=== PATIENT | male | born 1985 | race African-American/Black ===

== ENCOUNTER 2020-03-31 21:33 | Emergency (ER) | payer SELFPAY ==
--- NOTE | 2020-03-31 22:38 | ER Document Report ---
ED Medical Screen (RME) - General Chief Complaint: Testicular Swelling Stated Complaint: SWOLLEN TESTICLE Time Seen by Provider: 03/31/20 22:32 Primary Care Provider: JERONIMO ALEMAN MD [Primary Care Provider] - Follow up as needed Notes: HPI: 34-year-old male presenting for evaluation of right testicular pain and swelling. Patient states over the last 2 to 3 days he noticed increasing pain and swelling of the right testicle had fever up to 101 last night. Reports urine is dark and foul-smelling. States initially he did have some discomfort in the lower abdomen that is now mostly in the right testicle. PHYSICAL EXAMINATION: Patient's right testicle is significantly swollen with moderate tenderness along the testicle itself in the epididymis left testicle is not tender not swollen or edematous I have greeted and performed a rapid initial assessment of this patient. A comprehensive ED assessment and evaluation of the patient, analysis of test results and completion of medical decision making process will be conducted by an additional ED providers. TRAVEL OUTSIDE OF THE [place] IN LAST 30 DAYS: No - Related Data Allergies/Adverse Reactions: No Known Allergies Allergy (Unverified 03/31/20 22:32) Physical Exam - Vital signs Vitals: Temp Pulse Resp BP Pulse Ox 98.6 F 109 H 18 153/90 H 99 03/31/20 21:51 03/31/20 21:51 03/31/20 21:51 03/31/20 21:51 03/31/20 21:51 Course - Vital Signs Vital signs: Temp Pulse Resp BP Pulse Ox 98.6 F 109 H 18 153/90 H 99 03/31/20 21:51 03/31/20 21:51 03/31/20 21:51 03/31/20 21:51 03/31/20 21:51 Doctor's Discharge - Discharge Referrals: JERONIMO ALEMAN MD [Primary Care Provider] - Follow up as needed
[2020-03-31 22:50] LABS: ABSOLUTE LYMPHOCYTES (AUTO) 1.2 10^3/uL (0.5-4.7); ABSOLUTE MONOCYTES (AUTO) 0.9 10^3/uL (0.1-1.4); ABSOLUTE NEUT (AUTO) 8.2 10^3/uL (1.7-8.2); BASOPHILS % (AUTO) 0.2 % (0-2); EOSINOPHILS % (AUTO) 0.5 % (0-6); HEMATOCRIT 40.7 % (37.9-51.0); HEMOGLOBIN 13.6 g/dL (13.5-17.0); LYMPHOCYTES % (AUTO) 11.3 % (13-45); MEAN CORPUSCULAR HEMOGLOBIN 28.8 pg (27.0-33.4); MEAN CORPUSCULAR HGB CONC 33.6 g/dL (32.0-36.0); MEAN CORPUSCULAR VOLUME 86 fl (80-97); MONOCYTES % (AUTO) 8.7 % (3-13); PLATELET COUNT 274 10^3/uL (150-450); RED BLOOD COUNT 4.73 10^6/uL (4.35-5.55); RED CELL DISTRIBUTION WIDTH 13.9 % (11.5-14.0); SEGMENTED NEUTROPHILS % (AUTO) 79.3 % (42-78); TOTAL CELLS COUNTED % (AUTO) 100 %; WHITE BLOOD COUNT 10.4 10^3/uL (4.0-10.5)
[2020-03-31 23:09] LABS: ANION GAP 13 (5-19); BLOOD UREA NITROGEN 13 mg/dL (7-20); CALCIUM 9.4 mg/dL (8.4-10.2); CARBON DIOXIDE 23 mmol/L (22-30); CHLORIDE 103 mmol/L (98-107); GLUCOSE 129 mg/dL (75-110); POTASSIUM 3.6 mmol/L (3.6-5.0)
[2020-03-31 23:35] LABS: APPEARANCE,URINE SLIGHTLY-CLOUDY; BILIRUBIN,URINE NEGATIVE (NEGATIVE); COLOR,URINE YELLOW; GLUCOSE, URINE NEGATIVE (NEGATIVE); KETONES,URINE TRACE mg/dL (NEGATIVE); LEUKOCYTE ESTERASE,URINE LARGE (NEGATIVE); NITRITE,URINE POSITIVE (NEGATIVE); PROTEIN,URINE 30 mg/dL (NEGATIVE); URINE SPECIFIC GRAVITY 1.014
--- NOTE | 2020-04-01 00:08 | RADIOLOGY REPORT (SQ) ---
EXAM DESCRIPTION: US SCROTUM COMPLETED DATE/TME: 03/31/2020 22:35 CLINICAL HISTORY: 34 years, Male, right test swelling COMPARISON: None. TECHNIQUE: Axial 2-D grayscale images of the scrotum were acquired. Doppler was utilized. LIMITATIONS: None. FINDINGS: Right testicle measures 3.7 x 3.6 x 2.9 cm in size. It appears diffusely heterogenous in echogenicity and hyperemic. The right epididymis is enlarged and also heterogenous in echogenicity, specifically measuring 1.6 x 2.4 x 1.4 cm in size. Otherwise, the right testicle demonstrates normal low resistance arterial waveforms/venous flow. The right scrotal wall appears thickened. Incidental note is made of an appendix testis. Left testicle measures 4.1 x 3.1 x 2.4 cm in size. It appears overall heterogenous in echogenicity, demonstrating normal low resistance arterial waveforms/venous flow. Incidental note is made of an appendix testis. The left epididymis appears diffusely somewhat enlarged, measuring 1.4 x 2.2 x 1.3 cm in size. However, no obvious hyperemia is noted. Small bilateral hydroceles are evident. Both appear mildly complex. IMPRESSION: Findings are consistent with right epididymoorchitis with small bilateral complex hydroceles. Heterogenous left testicle and epididymis, neither which appear hyperemic, possibly related to remote insult. copyright 2010 [employer]- All Rights Reserved
[2020-04-01 01:03] LABS: CHLAM PCR NOT DETECTED (NOT DETECT)
[2020-04-01] MEDS ORDERED: HYDROCODONE/ACETAMINOPHEN 5-325 MG (6 TAB/ER DISP) PO PRN (02:56)
[2020-04-01] MEDS ORDERED: LEVOFLOXACIN 750 MG TABLET PO ONE (02:56)
--- NOTE | 2020-04-01 03:02 | ER Document Report ---
ED General - General Chief Complaint: Testicular Pain Stated Complaint: SWOLLEN TESTICLE Time Seen by Provider: 03/31/20 22:32 Primary Care Provider: JERONIMO ALEMAN MD [Primary Care Provider] - Follow up as needed TRAVEL OUTSIDE OF THE [place] IN LAST 30 DAYS: No - HPI Context: This is a 34-year-old male presenting to the emergency department complaining of testicular pain and swelling. Patient states he is been having the swelling and pain for the past 2 to 3 days. Patient states he has had fever up to 101.0 last night. Patient also states that his urine is dark and foul-smelling. Patient is also complaining of some suprapubic discomfort. Patient is also complaining of some low back discomfort. Patient denies multiple sexual partners. Patient denies pain with bowel movements. Patient denies penile discharge. Patient denies recent trauma to his scrotal region. Patient states movement and palpation of his scrotum exacerbates the pain. Patient has taken some Tylenol with minimal relief. Patient rates the pain as a 4 out of 5 and describes it as throbbing. Associated symptoms: Other - See HPI Exacerbated by: Other - See HPI Relieved by: Other - See HPI - Related Data Allergies/Adverse Reactions: No Known Allergies Allergy (Unverified 03/31/20 22:32) Past Medical History - General Information source: Patient - Social History Smoking Status: Current Every Day Smoker Frequency of alcohol use: Social Drug Abuse: Marijuana Family History: Reviewed & Not Pertinent Patient has homicidal ideation: No Review of Systems - Review of Systems Constitutional: Fever EENT: No symptoms reported Cardiovascular: No symptoms reported Respiratory: No symptoms reported Gastrointestinal: No symptoms reported Genitourinary: No symptoms reported Male Genitourinary: See HPI Musculoskeletal: No symptoms reported Skin: No symptoms reported Hematologic/Lymphatic: No symptoms reported Neurological/Psychological: No symptoms reported -: Yes All other systems reviewed and negative Physical Exam - Vital signs Vitals: Temp Pulse Resp BP Pulse Ox 98.6 F 109 H 18 153/90 H 99 03/31/20 21:51 03/31/20 21:51 03/31/20 21:51 03/31/20 21:51 03/31/20 21:51 - Notes Notes: CONSTITUTIONAL [Vital signs reviewed, Patient appears comfortable, Alert and oriented X 3, Normal stature.] HEAD [Atraumatic, Normocephalic.] EYES [Eyes are normal to inspection, No discharge from eyes, Extraocular muscles intact, Sclera are normal, Conjunctiva are normal.] NECK [Normal ROM, No jugular venous distention, No meningeal signs, no carotid bruit.] RESPIRATORY CHEST [Chest is nontender, Breath sounds normal, No respiratory distress.] CARDIOVASCULAR [RRR, No murmurs, Normal S1 S2, No rub, No gallop.] ABDOMEN [Abdomen is nontender, No pulsatile masses, No other masses, Bowel sounds normal, No distension, No peritoneal signs, No hernias.] MALE Patient is circumcised. There is no penile discharge noted at the urethral meatus. Patient does have a significant amount of swelling in his right testicle. Upper and lower part of testicle are both tender to palpation there is no emphysema appreciated. Normal cremasteric reflex bilaterally. BACK [There is no CVA Tenderness, There is no tenderness to palpation, Normal inspection.] UPPER EXTREMITY [Inspection normal, No cyanosis, No clubbing, No edema, 2+ radial pulses.] LOWER EXTREMITY [Inspection normal, No cyanosis, No clubbing, No edema, No calf tenderness, 2+ femoral pulses.] NEURO [No focal motor deficits, No focal sensory deficits, Speech normal.] SKIN [Skin is warm, Skin is dry, Skin is normal color.] LYMPHATIC [No adenopathy in neck.] PSYCHIATRIC [Normal affect. ] Course - Re-evaluation Re-evalutation: 04/01/20 03:02 Results of ED MSE discussed with patient. All questions were answered prior to discharge. Emergency signs and symptoms, reasons to return to the emergency department discussed with patient. Medical decision making: Results of patient's ultrasound show evidence of Epidydmoorchitis. Patient also has a urinary tract infection. GC and Chlamydia tests are negative. Plan is to treat with Levaquin for 10 days. 04/01/20 03:03 04/01/20 03:04 - Vital Signs Vital signs: Temp Pulse Resp BP Pulse Ox 98.6 F 109 H 18 153/90 H 99 03/31/20 21:51 03/31/20 21:51 03/31/20 21:51 03/31/20 21:51 03/31/20 21:51 - Laboratory Result Diagrams: 03/31/20 22:41 03/31/20 22:41 Laboratory results interpreted by me: 03/31/20 03/31/20 03/31/20 22:41 22:41 23:20 Lymph % (Auto) 11.3 L Seg Neutrophils % 79.3 H Glucose 129 H Urine Protein 30 H Urine Ketones TRACE H Urine Blood MODERATE H Urine Nitrite POSITIVE H Urine Urobilinogen 4.0 H Ur Leukocyte Esterase LARGE H - Diagnostic Test Radiology reviewed: Reports reviewed Discharge - Discharge Clinical Impression: Epididymo-orchitis UTI (urinary tract infection) Qualifiers: Urinary tract infection type: site unspecified Hematuria presence: with hematuria Qualified Code(s): N39.0 - Urinary tract infection, site not specified; R31.9 - Hematuria, unspecified Condition: Stable Disposition: HOME, SELF-CARE Instructions: Urinary Tract Infection ([facility]) Additional Instructions: Return to the Emergency Department without delay if any worse. HOME CARE INSTRUCTIONS & INFORMATION: Thank you for choosing us for your medical needs. We hope you're satisfied with the care you received. After you leave, you must properly care for your problem and, at the same time, observe its progress. Any condition can change. Some illnesses can change rapidly over hours or days. If your condition worsens, return to the Emergency Department or see your physician promptly. ABOUT YOUR X-RAYS AND EKG'S: If you had an EKG or X-rays taken, they have been read by the Emergency Physician. The X-rays and EKG's will also be read by a Radiologist or Transformer Assembler within 24 hours. If discrepancies are noted, you will be notified by telephone. Please be certain the ED has a correct telephone number & address where you can be reached. Also, realize that some fractures or abnormalities do not show up on initial X-rays. If your symptoms continue, see your physician. ABOUT YOUR LABORATORY TEST: If you had laboratory tests, the results have been reviewed by the Emergency Physician. Some test results (for example cultures) may not be available for several days. You will be contacted if any test result shows you need additional treatment. Please be certain the ED has a correct t elephone number and address where you can be reached. ABOUT YOUR MEDICATIONS: You will receive instructions on how to take your medicine on the prescription label you receive. Additional information may be provided by the Pharmacy. If you have questions afterwards, call the ED for clarification or further instructions. Some prescribed medications may cause drowsiness. Do not perform tasks such as driving a car or operating machinery without consulting your Pharmacist. If you feel you need a refill of pain medication, your condition will need re-evaluation. Please do not call for a refill of any medication. ABOUT YOUR SIGNATURE: Signature of this document acknowledges to followin. Understanding that you received emergency treatment and that you may be released before al medical problems are known or treated. Please be certain the ED has a correct phone number & address where you can be reached. 2. Acknowledgement that you will arrange for follow-up care as recommended. 3. Authorization for the Emergency Physician to provide information to your follow-up Physician in order to maximize your care. AT ANY TIME, IF YOUR SYMPTOMS CHANGE SIGNIFICANTLY OR WORSEN OR YOU DEVELOP NEW SYMPTOMS, RETURN TO THE EMERGENCY DEPARTMENT IMMEDIATELY FOR RE-EVALUATION. OUR GOAL IS TO PROVIDE EXCELLENT MEDICAL CARE! WE HOPE THAT WE HAVE MET YOUR EXPECTATIONS DURING YOUR EMERGENCY DEPARTMENT VISIT AND THAT YOU FEEL YOU HAVE RECEIVED EXCELLENT CARE! Epididymo-orchitis You have epididymo-orchitis. This is an inflammation of the organ just behind the testicle, called the epididymis and the testicle itself. It can be due to infection in the bladder or prostate. Many cases are simply inflammation and are not caused by germs. Epididymo-orchitis often develops after heavy lifting or vigorous exercise. Antibiotics and antiinflammatory medication are often prescribed. Elevation of the scrotum with a jock-strap or tight briefs will help with the pain. Pain medication may be required. Either cold packs or warm sitz baths can help with the pain -- ask your doctor which he recommends for your case. It may take 10 to 14 days until the pain is gone. Avoid heavy lifting during this time. Call the doctor or go to the hospital if you develop fever, increasing pain, or severe swelling, or if you fail to improve as expected. Prescriptions: Levofloxacin [Levaquin 500 mg Tablet] 500 mg PO DAILY #10 tablet Forms: Return to Work Referrals: JERONIMO ALEMAN MD [Primary Care Provider] - Follow up as needed
[2020-04-01 03:06] VITALS: BP 144/88
== END 2020-04-01 03:26 | disposition home or self-care (01) ==
LOC: ER 21:33
DX: N45.3 Epididymo-orchitis (principal); N39.0 Urinary tract infection, site not specified; R31.9 Hematuria, unspecified; F17.200 Nicotine dependence, unspecified, uncomplicated; F12.10 Cannabis abuse, uncomplicated
CPT/HCPCS: 36415; 76870; 80048; 81001; 85025; 87086; 87088; 87186; 87491; 87591; 93976; 99284